=== PATIENT | female | born 1980 | race Caucasian/White ===

== ENCOUNTER 2017-12-27 12:52 | Emergency (ER) | payer SELFPAY ==
[2017-12-27 14:53] VITALS: BP 128/75
--- NOTE | 2017-12-27 15:04 | ED ---
Respiratory - HPI Summary HPI Summary: 37 yrold with three to four days of runny nose, cough, myalgias, fatigue, chills. She has sinus congestion and pain and feels she might have a sinus infection. She states she feels very tired and little energy. Denies sob. She has nausea and decreased appetite as well. - History of Current Complaint Chief Complaint: UCGeneralIllness Stated Complaint: SINUSES,COUGH Time Seen by Provider: 12/27/17 14:55 Pain Intensity: 8 - Allergy/Home Medications Allergies/Adverse Reactions: Allergies Allergy/AdvReac Type Severity Reaction Status Date / Time Latex, Natural Rubber Allergy Rash Verified 12/27/17 14:44 delmis Allergy Swelling Verified 12/27/17 14:44 nickel Allergy Swelling Verified 12/27/17 14:44 FLU VACCINE Allergy Rash Uncoded 12/27/17 14:44 Home Medications: Home Medications Guaifen/Phenyleph/Acetaminophn [Tylenol Cold Head Congest Cplt] 1 each PO DAILY PRN 12/27/17 [History Confirmed 12/27/17] Guaifenesin/Pseudoephedrne HCl [Mucinex D ER 600-60 mg Tablet] 1 each PO Q12H PRN 12/27/17 [History Confirmed 12/27/17] PMH/Surg Hx/FS Hx/Imm Hx Endocrine/Hematology History: Reports: Hx Thyroid Disease - Hoshimoto's Respiratory History: Reports: Hx Asthma - Surgical History Surgery Procedure, Year, and Place: [facility], 2002, [place]. CHOLECYSTECTOMY-- 2016 Infectious Disease History: No Infectious Disease History: Denies: Traveled Outside the [place] in Last 30 Days - Family History Known Family History: Negative: Cardiac Disease, Hypertension - Social History Occupation: Employed Full-time Lives: With Family Alcohol Use: Occasionally Substance Use Type: Reports: None Smoking Status (MU): Former Smoker Type: Cigarettes, eCigarettes Amount Used/How Often: 1/7 PPD Length of Time of Smoking/Using Tobacco: 25 Years Have You Smoked in the Last Year: Yes Review of Systems Positive: Chills, Fatigue Positive: Nasal Discharge Positive: Cough Positive: Nausea All Other Systems Reviewed And Are Negative: Yes Physical Exam Triage Information Reviewed: Yes Vital Signs On Initial Exam: Initial Vitals Temp Pulse Resp BP Pulse Ox 98.3 F 73 18 128/75 100 12/27/17 14:47 12/27/17 14:47 12/27/17 14:47 12/27/17 14:47 12/27/17 14:47 Vital Signs Reviewed: Yes Appearance: Positive: Well-Appearing, No Pain Distress Skin: Positive: Warm Eyes: Positive: EOMI ENT: Positive: Nasal congestion, Nasal drainage, TM red - bilateral with right one effusion, Sinus tenderness Neck: Positive: Nontender Respiratory/Lung Sounds: Positive: Clear to Auscultation, Breath Sounds Present Cardiovascular: Positive: RRR. Negative: Murmur Abdomen Description: Positive: Nontender Musculoskeletal: Positive: Strength/ROM Intact Neurological: Positive: Sensory/Motor Intact, Alert, Oriented to Person Place, Time, CN Intact II-III Psychiatric: Positive: Normal - Malik Coma Scale Best Eye Response: 4 - Spontaneous Best Motor Response: 6 - Obeys Commands Best Verbal Response: 5 - Oriented Coma Scale Total: 15 Diagnostics - Vital Signs Vital Signs Temp Pulse Resp BP Pulse Ox 12/27/17 14:47 98.3 F 73 18 128/75 100 - Laboratory Lab Statement: Any lab studies that have been ordered have been reviewed, and results considered in the medical decision making process. Disposition - Course Course Of Treatment: 37 yr old with sinusitis and bilateral otitis media. Plan Rx with Augmentin and Dc to home. - Diagnoses Provider Diagnoses: Sinusitis, Otitis media Discharge - Discharge Plan Condition: Good Disposition: HOME Prescriptions: Amoxicillin/Clavulanate TAB* [Augmentin TAB 875*] 875 mg PO BID #20 tab Patient Education Materials: Sinusitis (ED), Ear Infection (ED) Forms: *Work Release Referrals: Dwight Gauthier MD [Primary Care Provider] - 2 Days
== END 2017-12-27 15:28 | disposition home or self-care (01) ==
LOC: UCCORT 12:52
DX: J32.9 Chronic sinusitis, unspecified (principal); H66.93 Otitis media, unspecified, bilateral; E06.3 Autoimmune thyroiditis; J45.909 Unspecified asthma, uncomplicated; Z88.7 Allergy status to serum and vaccine; Z91.040 Latex allergy status; Z90.49 Acquired absence of other specified parts of digestive tract; Z87.891 Personal history of nicotine dependence
CPT/HCPCS: 87502; 99212; G0463

== ENCOUNTER 2018-03-11 14:47 | Emergency (ER) | payer SELFPAY ==
[2018-03-11 15:44] LABS: ABS Basophils 0 10^3/ul (0-0.2); ABS Eosinophils 0.1 10^3/ul (0-0.6); ABS Lymphocytes 2.8 10^3/ul (1.0-4.8); ABS Monocytes 0.5 10^3/ul (0-0.8); ABS Neutrophils 3.5 10^3/ul (1.5-7.7); ABS Nucleated RBC 0 10^3/ul; Eosinophil % 1.4 % (0-6); Hematocrit 39 % (35-47); Hemoglobin 13.3 g/dl (12.0-16.0); Lymphocyte % 40.6 % (25-47); Mean Corpuscular HGB Conc 34 g/dl (31-36); Mean Corpuscular Hemoglobin 30 pg (27-31); Mean Corpuscular Volume 88 fL (80-97); Mean Platelet Volume 6.9 um3 (7.4-10.4); Nucleated Red Blood Cells % 0; Platelet Count 332 10^3/ul (150-450); Red Blood Count 4.43 10^6/ul (4.0-5.4); Red Cell Distribution Width 13 % (10.5-15); White Blood Count 6.9 10^3/ul (3.5-10.8)
[2018-03-11 16:02] LABS: EGFR Non-African American 69.7 (>60)
--- NOTE | 2018-03-11 16:29 | RAD ---
Indication: Right flank pain. CT of the abdomen and pelvis was performed without oral or IV contrast administration. Coronal and sagittal reconstructed images were obtained. The lung bases demonstrate no pleural fluid, nodules or masses. Heart is of normal size without evidence of pericardial effusion. The liver is normal in size. No focal lesions or intrahepatic ductal dilatation is noted. The patient status post cholecystectomy. Pancreas demonstrates no mass or pancreatic ductal dilatation. The spleen is normal in size. No adrenal lesions are noted. The kidneys demonstrate no hydronephrosis. The retroperitoneal lymphadenopathy is noted. No dilated loops of bowel are noted. The colon is filled with stool. Normal appendix is noted. No free fluid is identified. IMPRESSION: No evidence of obstructive uropathy is noted. Normal appendix. No abnormal masses or fluid collections are identified.
--- NOTE | 2018-03-11 16:32 | ED ---
Abdominal Pain/Female - HPI Summary HPI Summary: Patient is a 37-year-old female presenting to the ED with the chief complaint of right flank pain. History of pulmonary embolism as well as kidney stones. She is also on control. Denies any smoking history. Denies any calf pain. She has been otherwise healthy and denies any urinary symptoms including obstructive symptoms. Denies any fevers, sweats, chills. She states that she lies very still, she does not have any pain, but the moment she moves the pain is approximately a 8 out of 10. She is resting comfortably on arrival. She declines any pain medications on arrival. She denies any nausea, vomiting, diarrhea, constipation. Denies any shortness of breath or chest pains. - History of Current Complaint Chief Complaint: EDFlankPain Stated Complaint: RT FLANK,SOB, FEVER Time Seen by Provider: 03/11/18 15:17 Hx Obtained From: Patient Hx Last Menstrual Period: 12/11/17 ?: No Onset/Duration: Sudden Onset Timing: Constant Severity Initially: Moderate Severity Currently: Moderate Pain Intensity: 8 Pain Scale Used: 0-10 Numeric Location: Flank Radiates: Yes Radiates to: RLQ, Inguinal Character: Sharp Aggravating Factor(s): Movement Alleviating Factor(s): Nothing Associated Signs and Symptoms: Positive: Negative - Risk Factors Ectopic Risk Factor: Negative Ovarian Torsion Risk Factor: Negative Allergies/Adverse Reactions: Allergies Allergy/AdvReac Type Severity Reaction Status Date / Time Latex, Natural Rubber Allergy Rash Verified 03/11/18 14:54 delmis Allergy Swelling Verified 03/11/18 14:54 morphine Allergy Rash Verified 03/11/18 17:08 nickel Allergy Swelling Verified 03/11/18 14:54 FLU VACCINE Allergy Rash Uncoded 03/11/18 14:54 PMH/Surg Hx/FS Hx/Imm Hx Previously Healthy: Yes - history of pulmonary embolism and renal calculi Endocrine/Hematology History: Reports: Hx Thyroid Disease - Hoshimoto's Respiratory History: Reports: Hx Asthma - Surgical History Surgery Procedure, Year, and Place: [facility], 2002, [place]. CHOLECYSTECTOMY-- 2016 - Immunization History Hx Pertussis Vaccination: No Immunizations Up to Date: No Infectious Disease History: No Infectious Disease History: Denies: Traveled Outside the [place] in Last 30 Days - Family History Known Family History: Negative: Cardiac Disease, Hypertension - Social History Occupation: Employed Full-time Lives: With Family Alcohol Use: Occasionally Hx Substance Use: No Substance Use Type: Reports: None Hx Tobacco Use: Yes Smoking Status (MU): Former Smoker Type: Cigarettes, eCigarettes Amount Used/How Often: 1/7 PPD Length of Time of Smoking/Using Tobacco: 25 Years Have You Smoked in the Last Year: Yes Review of Systems Constitutional: Negative Negative: Fever, Chills, Fatigue, Skin Diaphoresis Negative: Photophobia, Blurred Vision Negative: Palpitations, Chest Pain Negative: Shortness Of Breath, Cough Negative: Abdominal Pain, Vomiting, Diarrhea, Nausea Positive: see HPI, flank pain. Negative: hematuria, incontinence, pain Negative: Arthralgia, Myalgia Neurological: Negative All Other Systems Reviewed And Are Negative: Yes Physical Exam Triage Information Reviewed: Yes Vital Signs On Initial Exam: Initial Vitals Temp Pulse Resp BP Pulse Ox 98.8 F 89 20 126/88 100 03/11/18 14:53 03/11/18 14:53 03/11/18 14:53 03/11/18 14:53 03/11/18 14:53 Vital Signs Reviewed: Yes Appearance: Positive: Well-Appearing, Well-Nourished Skin: Positive: Skin Color Reflects Adequate Perfusion Head/Face: Positive: Normal Head/Face Inspection Eyes: Positive: EOMI, EDGAR, Conjunctiva Clear Neck: Positive: Supple, No Lymphadenopathy Respiratory/Lung Sounds: Positive: Clear to Auscultation, Breath Sounds Present Cardiovascular: Positive: RRR, Pulses are Symmetrical in both Upper and Lower Extremities Musculoskeletal: Positive: Strength/ROM Intact Neurological: Positive: Sensory/Motor Intact, Alert, Oriented to Person Place, Time, Speech Normal Psychiatric: Positive: Normal, Affect/Mood Appropriate Diagnostics - Vital Signs Vital Signs Temp Pulse Resp BP Pulse Ox 03/11/18 15:33 132/87 03/11/18 15:31 85 98 03/11/18 14:53 98.8 F 89 20 126/88 100 - Laboratory Lab Results: Lab Results 03/11/18 03/11/18 03/11/18 Range/Units 15:35 15:35 15:35 WBC 6.9 (3.5-10.8) 10^3/ul RBC 4.43 (4.0-5.4) 10^6/ul Hgb 13.3 (12.0-16.0) g/dl Hct 39 (35-47) % MCV 88 (80-97) fL MCH 30 (27-31) pg MCHC 34 (31-36) g/dl RDW 13 (10.5-15) % Plt Count 332 (150-450) 10^3/ul MPV 6.9 L (7.4-10.4) um3 Neut % (Auto) 50.6 (38-83) % Lymph % (Auto) 40.6 (25-47) % Mckinley % (Auto) 6.7 (0-7) % Eos % (Auto) 1.4 (0-6) % Baso % (Auto) 0.7 (0-2) % Absolute Neuts (auto) 3.5 (1.5-7.7) 10^3/ul Absolute Lymphs (auto) 2.8 (1.0-4.8) 10^3/ul Absolute Monos (auto) 0.5 (0-0.8) 10^3/ul Absolute Eos (auto) 0.1 (0-0.6) 10^3/ul Absolute Basos (auto) 0 (0-0.2) 10^3/ul Absolute Nucleated RBC 0 10^3/ul Nucleated RBC % 0 D-Dimer, Quantitative 227 (Less Than 230) ng/mL Sodium 137 L (139-145) mmol/L Potassium 3.8 (3.5-5.0) mmol/L Chloride 102 (101-111) mmol/L Carbon Dioxide 27 (22-32) mmol/L Anion Gap 8 (2-11) mmol/L BUN 9 (6-24) mg/dL Creatinine 0.90 (0.51-0.95) mg/dL Est GFR ( Amer) 89.6 (>60) Est GFR (Non-Af Amer) 69.7 (>60) BUN/Creatinine Ratio 10.0 (8-20) Glucose 95 (70-100) mg/dL Lactic Acid (0.5-2.0) mmol/L Calcium 9.5 (8.6-10.3) mg/dL Total Bilirubin 0.50 (0.2-1.0) mg/dL AST 12 L (13-39) U/L ALT 11 (7-52) U/L Alkaline Phosphatase 69 (34-104) U/L C-Reactive Protein 41.89 H (< 5.00) mg/L Total Protein 7.3 (6.4-8.9) g/dL Albumin 4.1 (3.2-5.2) g/dL Globulin 3.2 (2-4) g/dL Albumin/Globulin Ratio 1.3 (1-3) Beta HCG, Quant < 0.60 mIU/mL 03/11/18 Range/Units 15:35 WBC (3.5-10.8) 10^3/ul RBC (4.0-5.4) 10^6/ul Hgb (12.0-16.0) g/dl Hct (35-47) % MCV (80-97) fL MCH (27-31) pg MCHC (31-36) g/dl RDW (10.5-15) % Plt Count (150-450) 10^3/ul MPV (7.4-10.4) um3 Neut % (Auto) (38-83) % Lymph % (Auto) (25-47) % Mckinley % (Auto) (0-7) % Eos % (Auto) (0-6) % Baso % (Auto) (0-2) % Absolute Neuts (auto) (1.5-7.7) 10^3/ul Absolute Lymphs (auto) (1.0-4.8) 10^3/ul Absolute Monos (auto) (0-0.8) 10^3/ul Absolute Eos (auto) (0-0.6) 10^3/ul Absolute Basos (auto) (0-0.2) 10^3/ul Absolute Nucleated RBC 10^3/ul Nucleated RBC % D-Dimer, Quantitative (Less Than 230) ng/mL Sodium (139-145) mmol/L Potassium (3.5-5.0) mmol/L Chloride (101-111) mmol/L Carbon Dioxide (22-32) mmol/L Anion Gap (2-11) mmol/L BUN (6-24) mg/dL Creatinine (0.51-0.95) mg/dL Est GFR ( Amer) (>60) Est GFR (Non-Af Amer) (>60) BUN/Creatinine Ratio (8-20) Glucose (70-100) mg/dL Lactic Acid 1.0 (0.5-2.0) mmol/L Calcium (8.6-10.3) mg/dL Total Bilirubin (0.2-1.0) mg/dL AST (13-39) U/L ALT (7-52) U/L Alkaline Phosphatase (34-104) U/L C-Reactive Protein (< 5.00) mg/L Total Protein (6.4-8.9) g/dL Albumin (3.2-5.2) g/dL Globulin (2-4) g/dL Albumin/Globulin Ratio (1-3) Beta HCG, Quant mIU/mL Result Diagrams: 03/11/18 15:35 03/11/18 15:35 Lab Statement: Any lab studies that have been ordered have been reviewed, and results considered in the medical decision making process. Abdominal Pain Fem Course/Dx - Course Course Of Treatment: During the course of treatment, the patient is evaluated for right flank pain. Also a history of pulmonary emboli, so I have obtained a d-dimer which is negative at 227. She denies any shortness of breath and she is not tachycardic on arrival. She is afebrile and other vital signs are stable. CT abdomen pelvis obtained to assess for kidney stone at this time. Labs obtained and are unremarkable. UA obtained. She declines any pain medications at this time. IMPRESSION: No evidence of obstructive uropathy is noted. Normal appendix. No abnormal. masses or fluid collections are identified. On re-evaluation - patient is c/o RLQ pain with deep palpation. The appendix was commented on, so contrast not ordered for a follow up study. She also remains afebrile and labs are all WNL. I have offered a transvaginal US. Signed out to Isela Leal PA-C pending the S. Patient is made aware of plan. - Diagnoses Provider Diagnoses: Abdominal pain Discharge - Sign-Out/Discharge Documenting (check all that apply): Sign-Out Patient Signing out patient TO: Shalini Leal - Discharge Plan Condition: Good Disposition: HOME Prescriptions: Ondansetron ODT TAB* [Zofran 4 MG Odt TAB*] 4 mg PO Q6H PRN #16 tab.odt PRN Reason: Nausea Patient Education Materials: Flank Pain (ED) Referrals: Dwight Gauthier MD [Primary Care Provider] - Additional Instructions: Can take Zofran every 6 hours as needed for nausea Drink small amounts of fluid as tolerated Take ibuprofen or Tylenol for pain as needed every 6 hours Follow up with primary within 5 days Return to ED if develop fever that does not respond to Tylenol or ibuprofen, severe abdominal pain, or any new or worsening symptoms - Billing Disposition and Condition Condition: GOOD Disposition: HOME
[2018-03-11] MEDS ORDERED: Ondansetron INJ* 2 MG/ML VIAL IV ONE (16:43)
[2018-03-11] MEDS: Morphine VIAL* 4 MG/ML VIAL (1 ml vial) IV ONE ×2 (16:57→18:20)
[2018-03-11] MEDS ORDERED: Ketorolac INJ* 30 MG/ML 1 ML VIAL IV PUSH ONE (17:08)
--- NOTE | 2018-03-11 17:10 | ED ---
Progress - Progress Note Progress Note: patient signed out by kim pending u/s and urine. patient decline any chance of pelvic infection so will not do pelvic. patient has history of endometrosis so could be causing pain has had abnormal period that just finished. urine: no infection transvaginal u/s: IMPRESSION: No adnexal masses are noted. discussed that do not have a cause of pain but have ruled out uti, appendicitis , kidney stones, PE or ovarian cyst or torison. told to take tyenlol or ibuprofen for symptoms and follow up with primary. patient understand and agrees with plan. Course/Dx - Course Course Of Treatment: During the course of treatment, the patient is evaluated for right flank pain. Also a history of pulmonary emboli, so I have obtained a d-dimer which is negative at 227. She denies any shortness of breath and she is not tachycardic on arrival. She is afebrile and other vital signs are stable. CT abdomen pelvis obtained to assess for kidney stone at this time. Labs obtained and are unremarkable. UA obtained. She declines any pain medications at this time. gave dose of toradal and feeling better. will discharge with nausea medication. - Diagnoses Provider Diagnoses: Abdominal pain Discharge - Sign-Out/Discharge Documenting (check all that apply): Receiving Sign-Out Receiving patient FROM: Kim Pimentel - Discharge Plan Condition: Good Disposition: HOME Prescriptions: Ondansetron ODT TAB* [Zofran 4 MG Odt TAB*] 4 mg PO Q6H PRN #16 tab.odt PRN Reason: Nausea Patient Education Materials: Flank Pain (ED) Referrals: Dwight Gauthier MD [Primary Care Provider] - Additional Instructions: Can take Zofran every 6 hours as needed for nausea Drink small amounts of fluid as tolerated Take ibuprofen or Tylenol for pain as needed every 6 hours Follow up with primary within 5 days Return to ED if develop fever that does not respond to Tylenol or ibuprofen, severe abdominal pain, or any new or worsening symptoms - Billing Disposition and Condition Condition: GOOD Disposition: HOME
[2018-03-11 18:04] LABS: Urine Appearance Clear; Urine Blood 1+ (Negative); Urine Color Yellow; Urine Ketones Negative (Negative); Urine Protein Negative (Negative); Urine Specific Gravity 1.021 (1.010-1.030); Urine Urobilinogen Negative (Negative)
--- NOTE | 2018-03-11 18:06 | RAD ---
Indication: Right lower quadrant pain. Real-time sonography of the pelvis was performed. The uterus measures 8.4 x 3.5 x 4.3 cm. Endometrial echo measures 12 mm. The right ovary measures 1.8 x 1.3 x 1.6 cm. Left ovary measures 2.1 x 0.8 x 1.7 cm. There is curvilinear hyperechogenicity in the periphery of the right ovary. The possibility of a fallopian tube coil should BE considered. Doppler interrogation demonstrates flow in both ovaries. IMPRESSION: No adnexal masses are noted.
[2018-03-11 18:27] VITALS: BP 141/78
== END 2018-03-11 18:27 | disposition home or self-care (01) ==
LOC: ED 14:47
DX: R10.31 Right lower quadrant pain (principal); Z87.891 Personal history of nicotine dependence
CPT/HCPCS: 36415; 74176; 76830; 80053; 81003; 81015; 83605; 84702; 85025; 85379; 86140; 96374; 96375; 99283; J1885; J2270; J2405